=== PATIENT | male | born 1940 | race Caucasian/White ===

== ENCOUNTER → 2019-03-08 | Outpatient (CLI) | payer MEDICARE ==
[2019-03-08 15:12] LABS: Potassium 4.3 mmol/L (3.5-5.1)
== END | disposition home or self-care (01) ==
LOC: LABPAT 14:21
PROVIDERS: ATTEND Internal Medicine Clinical Cardiac Electrophysiology
DX: Z01.812 Encounter for preprocedural laboratory examination (principal)
CPT/HCPCS: 36415; 80051; 82565; 82947; 83735; 84520

== ENCOUNTER → 2019-03-12 | Day surgery (SDC) | payer MEDICARE ==
[~2019-03-12] MED LIST: SODIUM CHLORIDE 0.9% 1,000 ML IV ONE; SODIUM CHLORIDE 0.9% 1,000 ML IV SCH
[2019-03-12 13:35] VITALS: RESP 18; TEMP 98
[2019-03-12 14:57] VITALS: BP 138/74; PULSE 58
--- NOTE | 2019-03-12 16:26 | P.PCN ---
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 The patient has a screw-in RV lead and a screw-in atrial lead in the right atrial appendage No lead discontinued T under the clavicle Left upper extremity venogram was performed 50 mL of dye was used. Left subclavian vein was patent Plan Close monitoring of ventricular thresholds and lead impedances If this continues to rise then implantation of a new lead, possibly a His bundle lead implantation should be considered
== END | disposition home or self-care (01) ==
LOC: CATHEP 13:02
PROVIDERS: ATTEND Internal Medicine Clinical Cardiac Electrophysiology
DX: I42.2 Other hypertrophic cardiomyopathy (principal); I45.5 Other specified heart block; Z82.49 Family history of ischemic heart disease and other diseases of the circulatory system; F17.200 Nicotine dependence, unspecified, uncomplicated; Z79.82 Long term (current) use of aspirin; Z79.51 Long term (current) use of inhaled steroids; Z79.899 Other long term (current) drug therapy; Z88.0 Allergy status to penicillin; Z88.6 Allergy status to analgesic agent; Z91.040 Latex allergy status; E78.2 Mixed hyperlipidemia
CPT/HCPCS: 36005; 75820; 76000

== ENCOUNTER 2022-04-28 22:53 | Emergency (ER) | payer MEDICARE ==
[2022-04-28 23:03] VITALS: BP 143/75; PULSE 59; RESP 20; TEMP 98
--- NOTE | 2022-04-29 00:17 | ED ---
General Adult HPI - General Chief complaint: Fall Stated complaint: Head Injury Time Seen by Provider: 04/28/22 23:08 Source: patient, RN notes reviewed Mode of arrival: ambulatory Limitations: no limitations - History of Present Illness Initial comments: 81-year-old male presents to the emergency department for evaluation of injury sustained in a trip and fall earlier today. Patient states he was out for his daily child at 11 AM when he caught his foot on a uneven area and fell onto a gravel driveway. Reports striking his head and landing on an outstretched arm. States he went to the emergency department in the local area where the injury occurred, however was encouraged to return to the last have a CAT scan of his brain as he is unable to listen has injuries to his head and face. Patient denies any loss of consciousness at the time of fall. States he has been able to tolerate oral intake without difficulty. States he is ambulating without issue since the fall. Denies fever, chills, blurry vision, pain with eye movement, headache, jaw pain, neck pain, back pain, chest pain, shortness of breath, difficulty breathing, abdominal pain, nausea, vomiting, diarrhea, or dysuria. - Related Data Home Medications Medication Instructions Recorded Confirmed Montelukast Sodium [Singulair] 10 mg PO HS 03/31/15 03/12/19 Pantoprazole Sodium [Protonix] 40 mg PO HS 03/31/15 03/12/19 Simvastatin [Zocor] 40 mg PO HS 03/31/15 03/12/19 lamoTRIgine [LaMICtal] 50 mg PO QA 03/31/15 03/12/19 Calcium Carbonate/Vitamin D3 1 each PO DAILY 08/11/15 03/08/19 [Calcium 600 + Vit D Tablet] Donepezil [Aricept] 10 mg PO HS 08/11/15 03/12/19 Multivitamins, Thera [Theragran] 1 each PO DAILY 08/11/15 03/08/19 Primidone [Mysoline] 50 mg PO QA 08/11/15 03/12/19 Aspirin [Adult Low Dose Aspirin EC] 81 mg PO DAILY 03/08/19 03/12/19 [place] Xl 1 tab PO DAILY 03/08/19 Super Beta Prostate 1 tab PO DAILY 03/08/19 Turmeric Root Extract [Turmeric] 1 tab PO DAILY 03/08/19 03/08/19 Vortioxetine Hydrobromide 20 mg PO QAM 03/08/19 03/12/19 [Trintellix] Allergies Allergy/AdvReac Type Severity Reaction Status Date / Time latex Allergy Rash/Hives Verified 04/28/22 23:03 Penicillins Allergy Unknown Verified 04/28/22 23:03 Childhood Review of Systems ROS Statement: Those systems with pertinent positive or pertinent negative responses have been documented in the HPI. ROS Other: All systems not noted in ROS Statement are negative. Past Medical History Past Medical History: Asthma, Cancer, Hyperlipidemia, Prostate Disorder, Renal Disease, Skin Disorder Additional Past Medical History / Comment(s): SEE CARDIOVASCULAR H & P BY DR. BARRERA. "Heart block". Skin cancer (SQUAMOUS, BASAL). "borderline" kidneys History of Any Multi-Drug Resistant Organisms: None Reported Past Surgical History: Heart Catheterization, Orthopedic Surgery, Pacemaker, Tonsillectomy Additional Past Surgical History / Comment(s): Lft ankle surger. Alberto cataracts Past Anesthesia/Blood Transfusion Reactions: No Reported Reaction Type of Cardiac Device: Permanent Pacemaker Device Placement Date:: unknown Past Psychological History: Anxiety, Depression Smoking Status: Never smoker Past Alcohol Use History: Daily Past Drug Use History: None Reported - Past Family History Mother Family Medical History: No Reported History General Exam Limitations: no limitations General appearance: alert, in no apparent distress (Well-developed, well- nourished male in no acute distress. Initial temperature 98.0, pulse 59, respirations 20, blood pressure 143/75, pulse ox 99% on room air.) Head exam: Present: normocephalic. Absent: atraumatic (Contusions and abrasions noted to the left temporal region. Spongy dressing applied per previous facility.) Eye exam: Present: normal appearance, PERRL, EOMI, periorbital swelling, periorbital tenderness (periorbital tenderness and swelling of the left eye; contusion developing. no pain with eye movement.). Absent: scleral icterus, conjunctival injection ENT exam: Present: normal exam, normal oropharynx, mucous membranes moist Neck exam: Present: normal inspection, full ROM. Absent: tenderness, meningismus, lymphadenopathy Respiratory exam: Present: normal lung sounds bilaterally. Absent: respiratory distress, wheezes, rales, rhonchi, stridor Cardiovascular Exam: Present: regular rate, irregular rhythm, normal heart sounds GI/Abdominal exam: Present: soft, normal bowel sounds. Absent: distended, tenderness, guarding, rebound, rigid Back exam: Present: normal inspection, full ROM. Absent: paraspinal tenderness, vertebral tenderness Neurological exam: Present: alert, oriented X3, CN II-XII intact, normal gait Expanded Patient oriented to: Present: person, place, time Speech: Present: fluid speech Cranial nerves: EOM's Intact: Normal, Nystagmus: Normal Cerebellar function: Romberg: Normal Motor strength exam: RUE: 5, LUE: 5, RLE: 5, LLE: 5 Eye Response: (4) open spontaneously Motor Response: (6) obeys commands Verbal Response: (5) oriented Claude Total: 15 Psychiatric exam: Present: normal affect, normal mood Course Vital Signs 04/28/22 22:57 Temperature 98.0 F Pulse Rate 59 L Respiratory 20 Rate Blood Pressure 143/75 O2 Sat by Pulse 99 Oximetry Medical Decision Making - Medical Decision Making This is an 81-year-old male with a past medical history of CAD, pacemaker, and atrial fibrillation who presents to the emergency department via private vehicle for evaluation of head and facial injury status post trip and fall approximately 12-15 hours prior to arrival. Upon exam, patient is well-appear ing and in no acute distress. He answers questions appropriately. No focal neurological deficits. He has noticeable abrasions and contusions to the scalp, face, and left lateral perorbital region. CT of the brain and facial bones was obtained with no acute concerning findings. Wounds were cleansed and dressed of previous facility. Reiterated wound care instructions with the patient and spouse. Patient will be discharged home to follow up with his PCP for a recheck as needed. Return parameters were discussed in detail. Patient verbalizes understanding and agrees with this plan. Attending: Ck. - Radiology Data Radiology results: report reviewed, image reviewed CT of the brain was obtained. Report was reviewed in its entirety. Impression per Dr. Bartholomew is atrophy. No acute intracranial abnormality. There is mild progression of atrophy compared to the old exam. CT of facial bones was obtained. Report was reviewed in its entirety. Impression per Dr. Bartholomew is no fracture seen. Left-sided soft tissue deformity consistent with laceration as above. Disposition Clinical Impression: Contusion of face, Fall Disposition: HOME SELF-CARE Condition: Stable Instructions (If sedation given, give patient instructions): Fall Prevention for Older Adults (ED), Facial Contusion (ED) Additional Instructions: Apply bacitracin to abrasions. May apply ice if sore. I expect that you will be sore tomorrow. Follow-up with your PCP for a recheck on Monday. Return to the emergency department with any new, worsening, or concerning symptoms. Is patient prescribed a controlled substance at d/c from ED?: No Referrals: Rashad Daugherty MD [Primary Care Provider] - 1-2 days Time of Disposition: 01:12
--- NOTE | 2022-04-29 00:22 | CT ---
EXAMINATION TYPE: CT brain wo con DATE OF EXAM: 04/29/2022 COMPARISON: 03/31/2015 HISTORY: fall CT DLP: 1253.4 mGycm Automated exposure control for dose reduction was used. There is cerebral cortical atrophy. There is no mass effect or midline shift. No sign of intracranial hemorrhage. Calvarium is intact. There is normal aeration of the mastoid sinuses. Skull base is inta ct. IMPRESSION: Cerebral atrophy. No acute intracranial abnormality. There is mild progression of atrophy compared to the old exam.
--- NOTE | 2022-04-29 00:32 | CT ---
EXAMINATION TYPE: CT facial bones wo con DATE OF EXAM: 04/29/2022 COMPARISON: None HISTORY: Fall CT DLP: 1253.4 mGycm Automated exposure control for dose reduction was used. Images obtained from the bottom of the mandible to the frontal sinuses with no contrast. The mandibular ring is intact. Temporomandibular joints are intact. Zygomatic arches appear normal. N rodrigo bone is intact. The maxilla is intact. There is normal aeration of the left maxillary sinus. The re is bilateral patency of the ostiomeatal complex. No evidence of orbital blowout fracture. No retro -orbital mass. There is some soft tissue swelling inferior to the left orbit. There is normal aeratio n of the mastoid sinuses. Temporal bones appear intact. There is soft tissue deformity over the left side zygomatic arch consistent with laceration. There is some left lateral periorbital soft tissue sw elling. IMPRESSION: No fracture seen. Left-sided soft tissue deformity consistent with laceration as above.
== END 2022-04-29 01:35 | disposition home or self-care (01) ==
LOC: EC 22:53
DX: T14.90XA Injury, unspecified, initial encounter (principal); Z91.040 Latex allergy status; Z88.0 Allergy status to penicillin; J45.909 Unspecified asthma, uncomplicated; E78.5 Hyperlipidemia, unspecified; S00.83XA Contusion of other part of head, initial encounter; W01.0XXA Fall on same level from slipping, tripping and stumbling without subsequent striking against object, initial encounter
CPT/HCPCS: 70450; 70486

== ENCOUNTER → 2022-06-09 | Outpatient (CLI) | payer MEDICARE ==
[2022-06-09 15:58] LABS: Basophils # (A) 0.04 X 10*3/uL (0.00-0.10); Basophils % (A) 0.7 %; Eosinophils # (A) 0.47 X 10*3/uL (0.04-0.35); Eosinophils % (A) 7.7 %; HCT 36.4 % (39.6-50.0); HGB 11.6 g/dL (13.0-17.0); Immature Grans, Automated 0.3 %; Lymphocytes # (A) 1.43 X 10*3/uL (0.90-5.00); Lymphocytes % (A) 23.6 %; MCH 27.9 pg (27.0-32.0); MCHC 31.9 g/dL (32.0-37.0); MCV 87.5 fL (80.0-97.0); Mean Platelet Volume 11.2 fL (9.5-12.2); Monocytes # (A) 0.53 X 10*3/uL (0.20-1.00); Monocytes % (A) 8.7 %; NRBC Per 100 WBC 0 /100 WBCS (0.0-0.0); Neutrophils # (A) 3.58 X 10*3/uL (1.80-7.70); Platelet Count 157 X 10*3/uL (140-440); RBC 4.16 X 10*6/uL (4.40-5.60); RDW 14.9 % (11.5-14.5); WBC 6.07 X 10*3/uL (4.50-10.00)
[2022-06-09 16:20] LABS: Erythrocyte Sedimentation Rate 20 mm/Hr (0-20)
[2022-06-09 16:49] LABS: African American GFR (CKD) 37.2 (60.0-200.0); Albumin 4.1 g/dL (3.8-4.9); Albumin/Globulin Ratio 1.41 (1.60-3.17); BUN/Creat Ratio 18.68 Ratio (12.00-20.00); Blood Urea Nitrogen 35.5 mg/dL (9.0-27.0); Calcium 9.2 mg/dL (8.7-10.3); Globulin 2.9 g/dL (1.6-3.3); HDL Cholesterol 49.5 mg/dL (40.00-60.00); Non-African American GFR(CKD) 32.1 (60.0-200.0); PSA Annual Screen 0.7 ng/mL (0.000-4.000); Potassium 4.4 mmol/L (3.5-5.5); T4, Free (Free Thyroxine) 0.95 ng/dL (0.800-1.800); Total Bilirubin 0.4 mg/dL (0.30-1.20); Triglycerides 48.5 mg/dL (0.00-149.00)
[2022-06-09 17:04] LABS: Chol/HDL Ratio 2.36 Ratio; LDL Cholesterol,Direct Reflex 61.1 mg/dL (0.00-129.00)
== END | disposition home or self-care (01) ==
LOC: LABWHC1 08:41
PROVIDERS: ATTEND Internal Medicine
DX: E78.1 Pure hyperglyceridemia (principal); I10 Essential (primary) hypertension; N40.0 Benign prostatic hyperplasia without lower urinary tract symptoms; K21.9 Gastro-esophageal reflux disease without esophagitis; E78.00 Pure hypercholesterolemia, unspecified; F34.1 Dysthymic disorder; J45.20 Mild intermittent asthma, uncomplicated; N18.9 Chronic kidney disease, unspecified; N52.9 Male erectile dysfunction, unspecified
CPT/HCPCS: 84439; 80061; 80053; 85652; 84443; 85025; 83721; 36415; G0103

== ENCOUNTER → 2022-07-04 | Outpatient (CLI) | payer MEDICARE ==
[2022-07-04 17:43] LABS: Basophils # (A) 0.05 X 10*3/uL (0.00-0.10); Basophils % (A) 0.7 %; Eosinophils # (A) 0.28 X 10*3/uL (0.04-0.35); Eosinophils % (A) 3.7 %; HCT 36.9 % (39.6-50.0); HGB 11.4 g/dL (13.0-17.0); Immature Grans, Automated 0.4 %; Lymphocytes # (A) 1.71 X 10*3/uL (0.90-5.00); Lymphocytes % (A) 22.8 %; MCH 27.5 pg (27.0-32.0); MCHC 30.9 g/dL (32.0-37.0); MCV 88.9 fL (80.0-97.0); Mean Platelet Volume 10.6 fL (9.5-12.2); Monocytes # (A) 0.73 X 10*3/uL (0.20-1.00); Monocytes % (A) 9.7 %; NRBC Per 100 WBC 0 /100 WBCS (0.0-0.0); Neutrophils # (A) 4.71 X 10*3/uL (1.80-7.70); Neutrophils % (A) 62.7 %; Platelet Count 173 X 10*3/uL (140-440); RBC 4.15 X 10*6/uL (4.40-5.60); RDW 14.9 % (11.5-14.5); WBC 7.51 X 10*3/uL (4.50-10.00)
[2022-07-04 17:51] LABS: African American GFR (CKD) 38.4 (60.0-200.0); Anion Gap 8.8 mmol/L (10.00-18.00); BUN/Creat Ratio 22.86 Ratio (12.00-20.00); Blood Urea Nitrogen 42.3 mg/dL (9.0-27.0); Calcium 9.3 mg/dL (8.7-10.3); Carbon Dioxide 27.1 mmol/L (20.0-27.5); Non-African American GFR(CKD) 33.2 (60.0-200.0); Potassium 4.9 mmol/L (3.5-5.5)
== END | disposition home or self-care (01) ==
LOC: LABPAT 13:37
PROVIDERS: ATTEND Urology
DX: Z01.812 Encounter for preprocedural laboratory examination (principal); N40.1 Benign prostatic hyperplasia with lower urinary tract symptoms
CPT/HCPCS: 80048; 85025

== ENCOUNTER 2022-07-14 13:17 | Day surgery (SDC) | payer MEDICARE ==
[2022-07-13 09:06] VITALS: BMI 27.6
[~2022-07-14 13:17] MED LIST changes: +DEXAMETHASONE SOD PHOSPHATE 4 MG/ML 1 ML VIAL IV ONE; +HYDROmorphone 0.5 MG/0.5 ML SYRINGE IVP PRN; +LEVOFLOXACIN 500MG-D5W PMX 500 MG in DEXTROSE/WATER 1 100ML.BAG IVPB PRN; +LIDOCAINE 1% (10MG/ML) FOR IV START INTRADERMA PRN; +MIDAZOLAM 2 MG/2 ML VIAL IV PRN; +ONDANSETRON 4 MG/2 ML VIAL IVP ONE; -SODIUM CHLORIDE 0.9% 1,000 ML IV ONE; -SODIUM CHLORIDE 0.9% 1,000 ML IV SCH
--- NOTE | 2022-07-14 13:39 | P.GSHP ---
History of Present Illness H&P Date: 07/14/22 Chief Complaint: Urinary frequency, weak urinary stream Patient is an 81-year-old white male with BPH. His voiding symptoms of gradually worsened, and he now empties his bladder incompletely. Urinary flow studies have shown a weak urinary stream with incomplete bladder emptying, and cystoscopy shows bilobar BPH. He has been offered the options of a TURP versus a minimally invasive procedure such as Urolift. He has chosen to undergo the latter. - Genitourinary (Male) Genitourinary: Reports as per HPI Past Medical History Past Medical History: Asthma, Cancer, GERD/Reflux, Hyperlipidemia, Musculoskeletal Disorder, Prostate Disorder, Renal Disease Additional Past Medical History / Comment(s): "Heart block". Skin cancer (SQUAMOUS, BASAL). "Borderline kidneys". DDD. History of Any Multi-Drug Resistant Organisms: None Reported Past Surgical History: Heart Catheterization, Orthopedic Surgery, Pacemaker, Tonsillectomy Additional Past Surgical History / Comment(s): Left ankle surgery. Bilateral cataracts removed. Past Anesthesia/Blood Transfusion Reactions: No Reported Reaction Type of Cardiac Device: Permanent Pacemaker Device Placement Date:: at least 10 yrs ago Past Psychological History: Anxiety, Depression Smoking Status: Former smoker Past Alcohol Use History: Daily Additional Past Alcohol Use History / Comment(s): QUIT SMOKING IN 1964. 1 DRINK AT [employer]. Past Drug Use History: None Reported - Past Family History Mother Family Medical History: No Reported History Medications and Allergies Home Medications Medication Instructions Recorded Confirmed Type Montelukast Sodium [Singulair] 10 mg PO HS 03/31/15 07/13/22 History Pantoprazole Sodium [Protonix] 40 mg PO 03/31/15 07/13/22 History Calcium Carbonate/Vitamin D3 1 each PO DAILY 08/11/15 07/13/22 History [Calcium 600 + Vit D Tablet] Multivitamins, Thera [Theragran] 1 each PO DAILY 08/11/15 07/13/22 History Primidone [Mysoline] 50 mg PO QAM 08/11/15 07/13/22 History [place] Xl 1 tab PO DAILY 03/08/19 07/13/22 History Super Beta Prostate 1 tab PO DAILY 03/08/19 07/13/22 History allopurinoL [Zyloprim] 100 mg PO DAILY 07/13/22 07/13/22 History Allergies Allergy/AdvReac Type Severity Reaction Status Date / Time latex Allergy Rash/Hives Verified 07/13/22 09:13 Penicillins Allergy Unknown Verified 07/13/22 09:13 Childhood Surgical - Exam - General well developed, well nourished, no distress - Respiratory normal respiratory effort - Abdomen Abdomen: soft, non tender, no guarding, no rigid, no rebound - Genitourinary normal penis with no external lesions, testicles non-tender - Rectum Rectum: normal sphincter tone, no masses, other (Prostate mildly enlarged but smooth) - Psychiatric oriented to time, oriented to person, oriented to place, speech is normal, memory intact Assessment and Plan (1) Benign prostatic hyperplasia with lower urinary tract symptoms Status: Acute Code(s): N40.1 - BENIGN PROSTATIC HYPERPLASIA WITH LOWER URINARY TRACT SYMP SNOMED Code(s): 454625868 Plan: Cystoscopy with Urolift implants. The procedure then reviewed in detail with the patient. He has been made aware of potential risks, which include anesthesia, bleeding, infection, postoperative urinary retention, postoperative irritative voiding symptoms, and persistent incomplete bladder emptying.
[2022-07-14] MEDS: LACTATED RINGERS 1,000 ML IV SCH ×2 (13:52→17:00)
[2022-07-14] MEDS ORDERED: PHENYLEPHRINE-0.9% NACL SYG 1,000 MCG/10 ML SYRINGE ONE (14:28)
[2022-07-14] MEDS ORDERED: PROPOFOL 10 MG/ML 20 ML VIAL IV ONE (14:28)
[2022-07-14] MEDS ORDERED: GLYCOPYRROLATE 0.2 MG/ML 2 ML VIAL ONE (14:28)
[2022-07-14] MEDS ORDERED: NEOSTIGMINE 1 MG/ML 10 ML VIAL ONE (14:28)
[2022-07-14] MEDS ORDERED: fentaNYL (PF) 50 MCG/ML 2 ML AMP ONE (14:28)
[2022-07-14] MEDS ORDERED: MIDAZOLAM 2 MG/2 ML VIAL ONE (14:28)
[2022-07-14] MEDS ORDERED: ROCURONIUM 10 MG/ML (5 ML VIAL) IV ONE (14:28)
[2022-07-14 16:44] VITALS: RESP 16; TEMP 97.1
--- NOTE | 2022-07-14 17:15 | P.OP ---
Date of Procedure: 07/14/22 Preoperative Diagnosis: BPH with obstruction Postoperative Diagnosis: BPH with obstruction, bladder tumor Procedure(s) Performed: Cystoscopy, transurethral resection of bladder tumor (Large) Anesthesia: ALFREDA Surgeon: Doug Hercules Estimated Blood Loss (ml): 30 IV fluids (ml): 800 Pathology: other (Tumor fragments from right lateral bladder wall and prostatic urethra) Condition: stable Disposition: PACU Indications for Procedure: Patient is an 81-year-old white male with BPH. His voiding symptoms of gradually worsened, and he now empties his bladder incompletely. Urinary flow studies have shown a weak urinary stream with incomplete bladder emptying, and cystoscopy shows bilobar BPH. He has been offered the options of a TURP versus a minimally invasive procedure such as Urolift. He has chosen to undergo the latter. 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 Description of Procedure: The patient was taken in the operating room and placed in the dorsal lithotomy position, with his legs supported in Kishore stirrups. The external genitalia was prepped and draped sterilely. The 30 lens was used to introduce the cystoscope through the urethra and into the bladder under direct vision. The anterior urethra appeared normal. The prostatic urethra was visually occluded, with a trilobar configuration and a high median bar. The bladder was inspected. Both ureteral orifices were of normal anatomic location and configuration, and clear urine effluxed from both. The entire bladder was examined, revealing multiple flat tumors covering the majority of the right lateral bladder wall. No tumors were seen elsewhere in the bladder, or within the prostatic urethra. The planned Urolift procedure was aborted, and the decision was made to perform TUR- BT. The [place] urethrotome was used to incise the urethra to 25-Nigerien. The 25-Nigerien ACMI resectoscope sheath was introduced into the bladder. Using the cutting loop, the tumors were resected down to the muscle. All visible tumor was resected, involving an area exceeding 10 cm. Excellent hemostasis was attained. There was no evidence of bladder perforation. The resected tissue was saved and sent for pathologic examination. The resectoscope was then used to perform a biopsy of the prostatic urethra, resecting through the vesical neck and up to the verumontanum in the midline. This was sent as a separate specimen. After fulgurating the resection bed, an 18-N[place]ien Can catheter was inserted. The return was essentially clear. The patient tolerated the procedure well and was taken to the recovery room in stable condition.
[2022-07-14 18:11] VITALS: BP 152/85; PULSE 59
== END 2022-07-14 18:50 | disposition home or self-care (01) ==
LOC: OR 13:17
PROVIDERS: ATTEND Urology
DX: D09.0 Carcinoma in situ of bladder (principal); N40.1 Benign prostatic hyperplasia with lower urinary tract symptoms; N13.8 Other obstructive and reflux uropathy; J45.909 Unspecified asthma, uncomplicated; K21.9 Gastro-esophageal reflux disease without esophagitis; E78.5 Hyperlipidemia, unspecified; Z87.39 Personal history of other diseases of the musculoskeletal system and connective tissue; Z95.0 Presence of cardiac pacemaker; Z87.891 Personal history of nicotine dependence; Z86.59 Personal history of other mental and behavioral disorders; Z79.899 Other long term (current) drug therapy; Z88.0 Allergy status to penicillin
CPT/HCPCS: 88305; 88307; 52240; J2250; J1100; J2710; J2405; J1956; J3010; J2370; J2704

== ENCOUNTER → 2023-05-12 | Outpatient (CLI) | payer MEDICARE ==
[2023-05-12 16:45] LABS: ALT 24 U/L (10-49); AST 35 U/L (14-35); Albumin 4.4 d/dL (3.8-4.9); Albumin/Globulin Ratio 1.57 Ratio (1.60-3.17); Alkaline Phosphatase 72 U/L (41-126); BUN/Creat Ratio 13.71 Ratio (12.00-20.00); Blood Urea Nitrogen 28.8 mg/dL (9.0-27.0); Calcium 9.5 mg/dL (8.7-10.3); Carbon Dioxide 22.2 mmol/L (21.6-31.8); Chloride 103 mmol/L (96-109); Chol/HDL Ratio 2.67 Ratio; Globulin 2.8 d/dL (1.6-3.3); Glucose 98 mg/dL (70-110); LDL Cholesterol,Calculated 66.3 mg/dL (0.0-131.0); Potassium 4.3 mmol/L (3.5-5.5); Sodium 137 mmol/L (135-145); T4, Free (Free Thyroxine) 0.94 ng/dL (0.80-1.80); Total Bilirubin 0.4 mg/dL (0.3-1.2); Total Protein 7.2 d/dL (6.2-8.2); VLDL Calculation 17.52 mg/dL (5.00-40.00)
[2023-05-12 23:41] LABS: HCT 38.1 % (39.6-50.0); MCH 27.4 pg (27.0-32.0); MCHC 31.5 d/dL (32.0-37.0); Mean Platelet Volume 11.1 FL (9.5-12.2); NRBC Per 100 WBC 0 X 10*3/uL (0.00-0.01); Platelet Count 202 X 10*3/uL (140-440); RBC 4.38 X 10*6/uL (4.40-5.60); RDW 16.1 % (11.5-14.5); WBC 5.54 X 10*3/uL (4.50-10.00)
[2023-05-12 23:42] LABS: Basophils # (A) 0.04 X 10*3/uL (0.00-0.10); Basophils % (A) 0.7 %; Eosinophils # (A) 0.18 X 10*3/uL (0.04-0.35); Eosinophils % (A) 3.2 %; Lymphocytes # (A) 1.44 X 10*3/uL (0.90-5.00); Monocytes # (A) 0.63 X 10*3/uL (0.20-1.00); Monocytes % (A) 11.4 %; Neutrophils # (A) 3.24 X 10*3/uL (1.80-7.70); Neutrophils % (A) 58.5 %
== END | disposition home or self-care (01) ==
LOC: LABWHC1 09:12
PROVIDERS: ATTEND Internal Medicine
DX: I10 Essential (primary) hypertension (principal); E78.5 Hyperlipidemia, unspecified
CPT/HCPCS: 36415; 80053; 80061; 84439; 84443; 85025

== ENCOUNTER 2023-06-13 06:27 | Day surgery (SDC) | payer MEDICARE ==
[~2023-06-13 06:27] MED LIST changes: -DEXAMETHASONE SOD PHOSPHATE 4 MG/ML 1 ML VIAL IV ONE; -HYDROmorphone 0.5 MG/0.5 ML SYRINGE IVP PRN; -LEVOFLOXACIN 500MG-D5W PMX 500 MG in DEXTROSE/WATER 1 100ML.BAG IVPB PRN; -LIDOCAINE 1% (10MG/ML) FOR IV START INTRADERMA PRN; -MIDAZOLAM 2 MG/2 ML VIAL IV PRN; -ONDANSETRON 4 MG/2 ML VIAL IVP ONE; +SODIUM CHLORIDE 0.9% 1,000 ML IV SCH
[2023-06-13] MEDS ORDERED: SODIUM CHLORIDE 0.9% 500 ML 500 ML IV ONE (07:02)
[2023-06-13 07:08] VITALS: BP 140/74; PULSE 60; RESP 16; TEMP 97.7
[2023-06-13] MEDS ORDERED: IOPAMIDOL-370 100ML BTL IVP ONE (07:12)
[2023-06-13 07:27] LABS: African American GFR (CKD) 46 (>60 ml/min/1.73 sqM); Anion Gap 6 mmol/L; Blood Urea Nitrogen 35 mg/dL (9-20); Calcium 8.9 mg/dL (8.4-10.2); Carbon Dioxide 28 mmol/L (22-30); Chloride 106 mmol/L (98-107); Glucose 100 mg/dL (74-99); Non-African American GFR(CKD) 40 (>60 ml/min/1.73 sqM); Potassium 4.6 mmol/L (3.5-5.1); Sodium 140 mmol/L (137-145)
--- NOTE | 2023-06-13 11:18 | P.EPPROC ---
- EP Procedure Note Electrophysiology Procedure Note: Diagnosis Device at [facility], normal battery depletion Increased RV thresholds, chronic Nonobstructive hypertrophic cardio myopathy Left upper extremity venogram reveals a patent left subclavian vein with very mild stenosis 15 mL IV dye injected in the left arm Plan Proceed with the generator change and implantation of a new RV lead in the septum. Conduction system pacing and dual-chamber pacing since the old RV lead has chronically elevated thresholds and the patient is 100% RV paced Discussed with the patient Will schedule for next week
== END 2023-06-13 08:06 | disposition home or self-care (01) ==
LOC: CATHEP 06:27
PROVIDERS: ATTEND Internal Medicine Clinical Cardiac Electrophysiology
DX: I48.11 Longstanding persistent atrial fibrillation (principal); E78.2 Mixed hyperlipidemia; I42.1 Obstructive hypertrophic cardiomyopathy; F17.210 Nicotine dependence, cigarettes, uncomplicated; Z82.49 Family history of ischemic heart disease and other diseases of the circulatory system; Z79.01 Long term (current) use of anticoagulants; Z88.0 Allergy status to penicillin; Z91.040 Latex allergy status; Z95.0 Presence of cardiac pacemaker; Z79.899 Other long term (current) drug therapy
CPT/HCPCS: 36005; 75820; 80048; Q9967

== ENCOUNTER → 2023-06-19 | Day surgery (SDC) | payer MEDICARE ==
[2023-06-16 12:13] VITALS: BMI 29.2
[~2023-06-19] MED LIST changes: +ACETAMINOPHEN IV (For NPO) 1,000 MG in EMPTY BAG 1 BAG IVPB ONE; +ACETAMINOPHEN TAB 325 MG TAB PO PRN; +CLINDAMYCIN 600 MG in SODIUM CHLORIDE 0.9% 250 ML IRRIGATION PRN; +CLINDAMYCIN 900 MG in DEXTROSE 5% IN WATER 50 ML IVPB PRN; +CLINDAMYCIN 900 MG in DEXTROSE 5% IN WATER 50 ML IVPB SCH; +LACTATED RINGERS 1,000 ML IV SCH; +LIDOCAINE 1% (10MG/ML) FOR IV START INTRADERMA PRN; +LIDOCAINE 1% INJ 10MG/ML (20 ML MDV) ONE; +LIDOCAINE 1% INJ 10MG/ML (20 ML MDV) SQ ONE; +MIDAZOLAM 2 MG/2 ML VIAL ONE; +ONDANSETRON 4 MG/2 ML VIAL IVP PRN; +VANCOMYCIN 1,250 MG in SODIUM CHLORIDE 0.9% 250 ML IVPB PRN; +VANCOMYCIN IV PER PHARMACY 1 EACH MISC MISCELLANE PRN; +diphenhydrAMINE 50 MG/ML 1 ML VIAL ONE; +fentaNYL (PF) 50 MCG/ML 2 ML AMP IV PRN; +fentaNYL (PF) 50 MCG/ML 2 ML AMP ONE
[2023-06-19 10:15] VITALS: PULSE 60; RESP 16; TEMP 97.4
--- NOTE | 2023-06-19 14:15 | P.EPPROC ---
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 Written informed consent was obtained prior to the procedure. Conscious sedation provided by [employer]. IV antibiotics administered. Local anesthesia administered. A 4 cm incision made in the pectoral area. Subfascial pocket made. Venous accesses obtained Venous sheaths placed. Leads placed in the right heart. 2 sets of pacing cables were used; one for backup temporary pacing and the other for assessment of current of injury and signal analysis. A deflected sheath was prepped. A coronary sinus decapolar catheter was placed within this sheath. The catheter along with the sheath was then passed into the right heart, the catheter was prolapsed across the tricuspid valve, into the right ventricle and then further into the right ventricular outflow tract across the pulmonic valve into the pulmonary artery. This sheath was slid over this decapolar catheter into the RVOT. Thereafter the catheter last sheath assembly was withdrawn from the RVOT along the septum to the mid septal area. The sheath was appropriately to to map the right ventricular aspect of the septum. The decapolar catheter was withdrawn, the sheath flushed again and the screw-in pacing lead placed within the sheath. Further detailed unipolar pace-mapping of the septum was performed and once the appropriate based morphology was obtained on lead V1, the lead was screwed into the septum. The lead was screwed in 4-5 returns at a time while monitoring the current of injury, the pacing impedance changes and the paced QRS morphology. The stimulus to peak of V6 QRS was measured at each step. Once a QR or rSR pattern of paced QRS in lead V1 was obtained, a left bundle signal was sought. Impedance was measured and thresholds were measured. An impedance drop of 100-200 ohms but above 550 ohms was targeted along with an unchanged vector of the current of injury signal. The final positioning was based on the QRS morphology in lead V1 and a short stimulus to peak of the V6 QRS of less than 90 ms. The sheath was withdrawn, stability of the pacing lead deep in the septum was confirmed on LOMBARDO and AMHARIC views and the sheath was slipped and an adequate heel was provided for the lead. Unipolar and bipolar electrogram morphology obtained Left bundle lead parameters unipolar pacing threshold 0.4 V at 0.4 ms No R waves noted Pacing impedance 760 ohms Bipolar pacing impedance 893 ohms Atrial lead parameters sensing 0.6 mV, in atrial fibrillation, pacing impedance 380 ohms Device veneer splicer Dual-chamber pacemaker device connected to the leads and placed in the subfascial pocket Patient tolerated the procedure well without acute complications Pacemaker programming: DDDR 60-130ppm with mode switch
[2023-06-19 15:40] VITALS: BP 111/58
--- NOTE | 2023-06-19 22:43 | XR ---
EXAMINATION TYPE: XR chest 1V portable DATE OF EXAM: 06/19/2023 3:13 PM CLINICAL INDICATION:Male, 82 years old with history of Lead placement check; COMPARISON: Chest radiographs from 03/31/2015 TECHNIQUE: XR chest 1V portable Frontal view of the chest. FINDINGS: Lungs/Pleura: There is flattening of the diaphragm with increased lucency of the lungs. No evidence o f pneumothorax, pleural effusion or focal consolidation. Pulmonary vascularity: Unremarkable. Heart/mediastinum: Cardiomediastinal silhouette is enlarged and stable. Three lead cardiac conduction device overlying the left hemithorax with lead tips projecting over the right ventricle, right atriu m and coronary sinus. Musculoskeletal: No acute osseous pathology. IMPRESSION: 1. No acute cardiopulmonary disease/process. 2. Cardiac conduction leads appear in appropriate position. 3. COPD changes.
== END ==
LOC: CATHEP 08:47
PROVIDERS: ATTEND Internal Medicine Clinical Cardiac Electrophysiology
DX: Z45.010 Encounter for checking and testing of cardiac pacemaker pulse generator [battery] (principal); J44.9 Chronic obstructive pulmonary disease, unspecified; E78.5 Hyperlipidemia, unspecified; I48.91 Unspecified atrial fibrillation; Z88.0 Allergy status to penicillin; Z91.040 Latex allergy status; Z87.891 Personal history of nicotine dependence; Z85.51 Personal history of malignant neoplasm of bladder; Z79.01 Long term (current) use of anticoagulants; Z79.899 Other long term (current) drug therapy; Z79.51 Long term (current) use of inhaled steroids; Y83.8 Other surgical procedures as the cause of abnormal reaction of the patient, or of later complication, without mention of misadventure at the time of the procedure
CPT/HCPCS: 33207; 33233; 71045; C1730; C1892; C1898; C1769; C1785; J2250; J3370; J1200; J2001; J3010; J0736 ×2; 33216; 33228

== ENCOUNTER 2023-06-29 06:10 | Day surgery (SDC) | payer MEDICARE ==
[2023-06-22 15:06] VITALS: BMI 29.2
--- NOTE | 2023-06-27 07:00 | P.GSHP ---
History of Present Illness H&P Date: 06/27/23 Chief Complaint: Urinary frequency, weak urinary stream Patient is an 82-year-old white male with BPH. His voiding symptoms have gradually worsened, and he now empties his bladder incompletely. Urinary flow studies revealed a weak urinary stream with incomplete bladder emptying, and cystoscopy shows bilobar BPH. He has been offered the options of a TURP versus a minimally invasive procedure such as Urolift. He chose to undergo the latter, and this was to have been done in June 2022. However, cystoscopy at that time showed flat tumor on the right lateral bladder wall suspicious for carcinoma in situ. The tumor was resected, and the ureter left procedure was ab orted. 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 Bladder biopsies in March 2023 showed no evidence of malignancy. Given his persistent voiding symptoms, he has elected to undergo Urolift and comes for this reason. - Genitourinary (Male) Genitourinary: Reports urinary frequency Past Medical History Past Medical History: Atrial Fibrillation, Asthma, Cancer, Hyperlipidemia, Prostate Disorder, Renal Disease Additional Past Medical History / Comment(s): Bladder cancer/using BCG instillation, skin cancer (SQUAMOUS, BASAL). "borderline" kidneys History of Any Multi-Drug Resistant Organisms: None Reported Past Surgical History: Heart Catheterization, Orthopedic Surgery, Pacemaker, Tonsillectomy Additional Past Surgical History / Comment(s): Lft ankle surg. Alberto cataracts Past Anesthesia/Blood Transfusion Reactions: No Reported Reaction Type of Cardiac Device: Permanent Pacemaker Device Placement Date:: 2012 Past Psychological History: Anxiety, Depression Smoking Status: Former smoker Past Alcohol Use History: Daily Additional Past Alcohol Use History / Comment(s): QUIT SMOKING IN 1956. 1 DRINKS AT [employer]. Past Drug Use History: None Reported - Past Family History Mother Family Medical History: No Reported History Medications and Allergies Home Medications Medication Instructions Recorded Confirmed Type Montelukast Sodium [Singulair] 10 mg PO HS 03/31/15 06/22/23 History Primidone [Mysoline] 50 mg PO HS 08/11/15 06/22/23 History Beverly Xl 1 tab PO QAM 03/08/19 06/22/23 History Super Beta Prostate 1 tab PO BID 03/08/19 06/22/23 History allopurinoL [Zyloprim] 100 mg PO HS 07/13/22 06/22/23 History Apixaban [Eliquis] 2.5 mg PO BID 06/09/23 06/22/23 History Calcium Carbonate/Vitamin D3 1 tab PO QAM 06/09/23 06/22/23 History [Calcium 600 mg-D3 10 Mcg (400 Iu)] Famotidine 20 mg PO HS 06/09/23 06/22/23 History Magnesium 400 mg PO HS 06/09/23 06/22/23 History Multivitamins, Thera [Multivitamin 1 tab PO QAM 06/09/23 06/22/23 History (formulary)] Niacin 500 mg PO QAM 06/09/23 06/22/23 History OXcarbazepine 150 mg PO BID 06/09/23 06/22/23 History Simvastatin 40 mg PO HS 06/09/23 06/22/23 History lamoTRIgine [LaMICtal] 50 mg PO HS 06/09/23 06/22/23 History Allergies Allergy/AdvReac Type Severity Reaction Status Date / Time latex Allergy Rash/Hives Verified 06/22/23 14:35 Penicillins Allergy Unknown Verified 06/22/23 14:35 Childhood vancomycin AdvReac Itching Verified 06/22/23 14:35 Surgical - Exam - General well developed, well nourished, no distress - Respiratory normal respiratory effort - Abdomen Abdomen: soft, non tender, no guarding, no rigid, no rebound - Genitourinary normal penis with no external lesions, testicles non-tender - Psychiatric oriented to time, oriented to person, oriented to place, speech is normal, memory intact Assessment and Plan (1) Benign prostatic hyperplasia with lower urinary tract symptoms Status: Acute Code(s): N40.1 - BENIGN PROSTATIC HYPERPLASIA WITH LOWER URINARY TRACT SYMP SNOMED Code(s): 875962258 Plan: Cystoscopy with Urolift implants. The procedure then reviewed in detail with the patient. He has been made aware of potential risks, which include anesthesia, bleeding, infection, postoperative urinary retention, postoperative irritative voiding symptoms, and persistent incomplete bladder emptying.
[2023-06-29] MEDS ORDERED: ONDANSETRON 4 MG/2 ML VIAL IVP ONE (06:41)
[2023-06-29] MEDS ORDERED: LACTATED RINGERS 1,000 ML IV SCH (06:41)
[2023-06-29] MEDS ORDERED: LIDOCAINE 1% (10MG/ML) FOR IV START INTRADERMA PRN (06:41)
[2023-06-29] MEDS ORDERED: DEXAMETHASONE SOD PHOSPHATE 4 MG/ML 1 ML VIAL IV ONE ×2 (06:41)
[2023-06-29] MEDS ORDERED: HYDROmorphone 0.5 MG/0.5 ML SYRINGE IVP PRN (07:00)
[2023-06-29 07:04] VITALS: TEMP 96.9
[2023-06-29] MEDS ORDERED: FUROSEMIDE 10 MG/ML 2 ML VIAL ONE (07:31)
[2023-06-29] MEDS ORDERED: diphenhydrAMINE 50 MG/ML 1 ML VIAL ONE (07:31)
[2023-06-29] MEDS ORDERED: PROPOFOL 10 MG/ML 20 ML VIAL IV ONE (07:31)
[2023-06-29] MEDS ORDERED: LIDOCAINE 1% INJ 10MG/ML (20 ML MDV) ONE (07:31)
[2023-06-29] MEDS ORDERED: LABETALOL 5 MG/ML VIAL MDV ONE (07:31)
[2023-06-29] MEDS ORDERED: fentaNYL (PF) 50 MCG/ML 2 ML AMP ONE (07:31)
[2023-06-29] MEDS ORDERED: KETOROLAC 15 MG/ML 1 ML VIAL ONE (07:31)
[2023-06-29] MEDS ORDERED: ePHEDrine 50 MG/ML 1 ML VIAL ONE (07:31)
[2023-06-29] MEDS ORDERED: hydrALAZINE HCL 20 MG/ML 1 ML VIAL IVP ONE (09:36)
[2023-06-29 09:54] VITALS: RESP 18
[2023-06-29 11:31] VITALS: BP 120/78; PULSE 88
--- NOTE | 2023-07-02 07:54 | P.OP ---
Date of Procedure: 06/29/23 Preoperative Diagnosis: Urothelial carcinoma the bladder, BPH with obstruction Postoperative Diagnosis: Same Procedure(s) Performed: Cystoscopy with bladder biopsies, fulguration of bleeders, placement of Urolift implants Anesthesia: MATILDE Surgeon: Doug Hercules Estimated Blood Loss (ml): 30 IV fluids (ml): 600 Pathology: other (Bladder dome biopsy) Condition: stable Disposition: PACU Indications for Procedure: Patient is an 82-year-old white male with BPH. His voiding symptoms have gradually worsened, and he now empties his bladder incompletely. Urinary flow studies revealed a weak urinary stream with incomplete bladder emptying, and cystoscopy shows bilobar BPH. He has been offered the options of a TURP versus a minimally invasive procedure such as Urolift. He chose to undergo the latter, and this was to have been done in June 2022. However, cystoscopy at that time showed flat tumor on the right lateral bladder wall suspicious for carcinoma in situ. The tumor was resected, and the ureter left procedure was aborted. 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 Bladder biopsies in March 2023 showed no evidence of malignancy. Given his persistent voiding symptoms, he has elected to undergo Urolift and comes for this reason. Operative Findings: Patchy erythema with friable mucosa, involving primarily the right anterolateral bladder wall and left bladder dome. Obstructing prostate. Open anterior channel achieved by Urolift implants. Description of Procedure: The patient was taken in the operating room and placed in the dorsolithotomy position. The external genitalia was prepped and draped sterilely. The 30 lens was used to introduce the ACMI cystoscopic sheath through the urethra and into the bladder under direct vision. The anterior urethra appeared normal. The prostatic urethra showed evidence of partial obstruction with a bilobar configuration. Posteriorly, the fossa was open due to prior resection. However, the lateral lobes continued to obstruct anterolaterally. Upon entering the bladder, the bladder was noted to be distended. The bladder was drained and reexamined. The bladder mucosa was friable, and bleeding was noted predominantly at the left bladder dome and anterolaterally on the right. On the right side, the Bugbee electrode was used to fulgurate bleeders. An area of raised erythema was seen at the left bladder dome, and the cold cup biopsy forceps were used to obtain biopsies. This area was then fulgurated, attaining adequate hemostasis. No tumors or foreign bodies were seen. The ACMI cystoscopic sheath was removed, and the ZeniMax cystoscopic sheath was advanced through the urethra and into the bladder under direct vision. Urolift implants were placed at the 10:00 and 2:00 positions approximately 1.5 cm distal to the vesical neck. Based on the patient's anatomy, the implant on the right side did not grasp tissue and no portion of that implant was left behind. That implant was thus repeated. 2 additional Urolift implants were placed at the 9:00 and 3:00 positions at the level of the verumontanum. After performing 5 implants, including the one which did not take, obstruction was still noted on the left side. Therefore, a sixth implant was placed which resulted in an opened and unobstructed anterior channel. The cystoscope was removed, and an 18-Uk[place] Can catheter was placed. The return was pink-tinged. The patient tolerated the procedure well was taken to the recovery room in stable condition.
== END 2023-06-29 11:23 | disposition home or self-care (01) ==
LOC: OR 06:10
PROVIDERS: ATTEND Urology
DX: N30.10 Interstitial cystitis (chronic) without hematuria (principal); N40.1 Benign prostatic hyperplasia with lower urinary tract symptoms; E78.5 Hyperlipidemia, unspecified; I48.91 Unspecified atrial fibrillation; J45.909 Unspecified asthma, uncomplicated; F41.9 Anxiety disorder, unspecified; F32.A Depression, unspecified; N13.8 Other obstructive and reflux uropathy; Z79.01 Long term (current) use of anticoagulants; Z85.51 Personal history of malignant neoplasm of bladder; Z85.828 Personal history of other malignant neoplasm of skin; Z87.891 Personal history of nicotine dependence; Z88.0 Allergy status to penicillin; Z88.1 Allergy status to other antibiotic agents; Z91.040 Latex allergy status; Z95.0 Presence of cardiac pacemaker; Z79.899 Other long term (current) drug therapy
CPT/HCPCS: 88305; 52441; 52204; L8699; J0360; J1200; J1100; J1940; J0690; J2405; J2001; J3010; J1885; J2704; J1920

== ENCOUNTER → 2024-04-20 | Outpatient (CLI) | payer MEDICARE ==
[2024-04-21 07:38] LABS: Basophils # (A) 0.04 X 10*3/uL (0.00-0.10); Basophils % (A) 0.8 %; Eosinophils # (A) 0.11 X 10*3/uL (0.04-0.35); Eosinophils % (A) 2.1 %; HCT 36.1 % (39.6-50.0); HGB 11.8 g/dL (13.0-17.0); Lymphocytes % (A) 21.4 %; MCH 27.8 pg (27.0-32.0); MCHC 32.7 g/dL (32.0-37.0); MCV 85.1 FL (80.0-97.0); Mean Platelet Volume 11.2 FL (9.5-12.2); Monocytes # (A) 0.66 X 10*3/uL (0.20-1.00); Monocytes % (A) 12.9 %; NRBC Per 100 WBC 0 X 10*3/uL (0.00-0.01); Neutrophils # (A) 3.21 X 10*3/uL (1.80-7.70); Neutrophils % (A) 62.6 %; Platelet Count 150 X 10*3/uL (140-440); RBC 4.24 X 10*6/uL (4.40-5.60); RDW 14.6 % (11.5-14.5); WBC 5.13 X 10*3/uL (4.50-10.00)
[2024-04-21 10:40] LABS: ALT 19 U/L (10-49); AST 23 U/L (14-35); Albumin 4.4 g/dL (3.8-4.9); Albumin/Globulin Ratio 1.83 Ratio (1.60-3.17); Alkaline Phosphatase 70 U/L (41-126); BUN/Creat Ratio 16.62 Ratio (12.00-20.00); Blood Urea Nitrogen 26.6 mg/dL (9.0-27.0); Calcium 9.2 mg/dL (8.7-10.3); Carbon Dioxide 24.6 mmol/L (21.6-31.8); Chloride 94 mmol/L (96-109); Globulin 2.4 g/dL (1.6-3.3); Glucose 115 mg/dL (70-110); LDL Cholesterol,Calculated 55.4 mg/dL (0.0-131.0); Potassium 4.6 mmol/L (3.5-5.5); Sodium 132 mmol/L (135-145); T4, Free (Free Thyroxine) 1.07 ng/dL (0.80-1.80); Total Bilirubin 0.5 mg/dL (0.3-1.2); Total Protein 6.8 g/dL (6.2-8.2); VLDL Calculation 16.92 mg/dL (5.00-40.00)
== END | disposition home or self-care (01) ==
LOC: LABWHC1 10:10
PROVIDERS: ATTEND Internal Medicine
DX: I10 Essential (primary) hypertension (principal); E78.5 Hyperlipidemia, unspecified; D64.9 Anemia, unspecified; E55.9 Vitamin D deficiency, unspecified; R53.1 Weakness
CPT/HCPCS: 36415; 80053; 80061; 82306; 82607; 84439; 84443; 85025

== ENCOUNTER → 2025-02-28 | Outpatient (CLI) | payer MEDICARE ==
--- NOTE | 2025-02-28 15:15 | CT ---
EXAMINATION TYPE: CT abdomen pelvis wo con DATE OF EXAM: 02/28/2025 COMPARISON: NONE CLINICAL INDICATION: Male, 84 years old with history of C67.9 bladder ca, bladder CA, TECHNIQUE: CT scan of the abdomen and pelvis is performed , patient injected with mL of ., (none if empty) Oral contrast used: without Oral Contrast (none if empty) CT DLP: 882 mGycm, Automated exposure control for dose reduction was used. FINDINGS: LUNG BASES: Kptg-ki-pjozftdt peripheral reticulation and/or fibrotic changes present bilaterally. Mil d linear fibrosis in the bases. Prominent mitral calcification or surgical changes partially imaged. There is cardiomegaly with severe right atrial dilatation and dual-lead pacemaker partially imaged. LIVER/GB: No significant abnormality is appreciated. PANCREAS: No significant abnormality is seen. SPLEEN: No significant abnormality is seen. ADRENALS: No significant abnormality is seen. KIDNEYS: Some cortical volume loss bilaterally. Incidental 3.4 cm simple cyst in the right kidney lat erally that does not require follow-up. Rzym-fk-zldgxahs left greater than right hydronephrosis is se en. There is lobulated contour to the bladder with a few small anterior diverticulum. No intraluminal mass or calculus seen. Mild fat stranding of the wall could reflect posttreatment change. Surgical c lips inferiorly are seen. BOWEL: Redundant sigmoid colon and scattered colonic diverticula. No CT evidence for acute diverticul itis. Normal-appearing appendix from the cecum. No abnormal small or large bowel dilatation. PROSTATE/SEMINAL VESICLES: Suspect TURP type defect in the upper central prostate. Prostate gland not significantly enlarged. LYMPH NODES: No greater than 1cm abdominal or pelvic lymph nodes are appreciated. OSSEOUS STRUCTURES: Moderate to severe narrowing and spurring in both hip joints. Moderate to severe disc space narrowing at L4-L5 level. OTHER: Small fat-containing bilateral inguinal hernias. IMPRESSION: Suspected posttreatment change to the urinary bladder. No obvious suspicious mass or osmany opathy. Mild to moderate left greater than right hydronephrosis is noted. [facility], , 02/28/2025 3:13 PM
== END | disposition home or self-care (01) ==
LOC: RADCTMAIN 07:29
PROVIDERS: ATTEND Urology
DX: C67.9 Malignant neoplasm of bladder, unspecified (principal); N13.30 Unspecified hydronephrosis
CPT/HCPCS: 74176

== ENCOUNTER 2025-03-27 06:57 | Day surgery (SDC) | payer MEDICARE ==
[2025-03-26 13:17] VITALS: BMI 30.4
--- NOTE | 2025-03-26 22:30 | P.GSHP ---
History of Present Illness H&P Date: 03/26/25 Chief Complaint: Bladder cancer, hematuria Patient is an 84-year-old white male with BPH. His voiding symptoms have gradually worsened, and he elected to undergo UroLift implants in June 2022. However, cystoscopy at that time showed flat tumor on the right lateral bladder wall suspicious for carcinoma in situ. The tumor was resected, and the Urolift procedure was aborted. 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 Bladder biopsies in March 2023 showed no evidence of malignancy, and he ultimately underwent the UroLift implants in June 2023. Unfortunately, he continues to report significant voiding symptoms. He has recently experienced gross hematuria. Cystoscopy performed on January 20, 2025 showed no recurrences. Urine cytology showed atypical cells. CT scan performed on February 28, 2025 showed bilateral mild to moderate hydronephrosis, greater on the left side. He now comes for further evaluation. - Genitourinary (Male) Genitourinary: Reports as per HPI Past Medical History Past Medical History: Atrial Fibrillation, Asthma, Cancer, Hyperlipidemia, Prostate Disorder, Renal Disease Additional Past Medical History / Comment(s): recurrent bladder infections, Bladder cancer/using BCG instillation, skin cancer (SQUAMOUS, BASAL). "borderline" kidneys. History of Any Multi-Drug Resistant Organisms: None Reported Past Surgical History: Heart Catheterization, Orthopedic Surgery, Pacemaker, Tonsillectomy Additional Past Surgical History / Comment(s): Left ankle surgery. Bilateral cataract surgery. EP Study. Past Anesthesia/Blood Transfusion Reactions: No Reported Reaction Additional Past Anesthesia/Blood Transfusion Reaction / Comment(s): no hx blood transfusion Type of Cardiac Device: Permanent Pacemaker Device Placement Date:: 2012 left chest [employer] Smoking Status: Former smoker - Past Family History Mother Family Medical History: No Reported History Medications and Allergies Home Medications Medication Instructions Recorded Confirmed Type Montelukast Sodium [Singulair] 10 mg PO HS 03/31/15 03/26/25 History Forrest Xl 1 tab PO QAM 03/08/19 03/26/25 History allopurinoL [Zyloprim] 100 mg PO HS 07/13/22 03/26/25 History Apixaban [Eliquis] 2.5 mg PO BID 06/09/23 03/26/25 History Multivitamins, Thera [Multivitamin 1 tab PO QAM 06/09/23 03/26/25 History (formulary)] Niacin 500 mg PO QAM 06/09/23 03/26/25 History Simvastatin 40 mg PO HS 06/09/23 03/26/25 History lamoTRIgine [LaMICtal] 50 mg PO HS 06/09/23 03/26/25 History Albuterol Inhaler [Ventolin Hfa 1 - 2 puff INHALATION Q6H PRN 03/26/25 03/26/25 History Inhaler] Alfuzosin HCl [Alfuzosin HCl ER] 10 mg PO DAILY 03/26/25 03/26/25 History Cyanocobalamin (Vitamin B-12) 1,000 mcg PO DAILY 03/26/25 03/26/25 History [Vitamin B-12] Ferrous Sulfate [Iron] 325 mg PO DAILY 03/26/25 03/26/25 History Fluticasone/Umeclidin/Vilanter 1 puff INHALATION QAM 03/26/25 03/26/25 History [Trelegy Ellipta 200-62.5-25] Methenamine Hippurate 1 gm PO BID 03/26/25 03/26/25 History Solifenacin Succinate [Vesicare] 5 mg PO DAILY 03/26/25 03/26/25 History Thiamine HCl [Vitamin B-1] 100 mg PO DAILY 03/26/25 03/26/25 History Vit C/E/Zn/Coppr/Lutein/Zeaxan 1 each PO DAILY 03/26/25 03/26/25 History [Preservision Areds 2 Chew Tab] tadalafiL 5 mg PO HS 03/26/25 03/26/25 History Allergies Allergy/AdvReac Type Severity Reaction Status Date / Time latex Allergy Rash/Hives Verified 03/26/25 12:55 Penicillins Allergy Unknown Verified 03/26/25 12:55 Childhood vancomycin AdvReac Itching Verified 03/26/25 12:55 Surgical - Exam - General well developed, well nourished, no distress - Respiratory normal respiratory effort - Genitourinary normal penis with no external lesions, testicles non-tender - Psychiatric oriented to time, oriented to person, oriented to place, speech is normal, memory intact Assessment and Plan (1) Carcinoma in situ of bladder Status: Acute Code(s): D09.0 - CARCINOMA IN SITU OF BLADDER SNOMED Code(s): 67304370 (2) Unspecified hydronephrosis Status: Acute Code(s): N13.30 - UNSPECIFIED HYDRONEPHROSIS SNOMED Code(s): 23882486 Plan: Cystoscopy with possible bladder biopsies, bilateral retrograde pyelograms, possible ureteroscopy, possible ureteral stent insertion. The planned procedure has been reviewed in detail with the patient, including both the rationale for the procedure and potential risks which include anesthesia, bleeding, infection, ureteral injury, and bladder perforation.
[~2025-03-27 06:57] MED LIST changes: -ACETAMINOPHEN IV (For NPO) 1,000 MG in EMPTY BAG 1 BAG IVPB ONE; -ACETAMINOPHEN TAB 325 MG TAB PO PRN; -CLINDAMYCIN 600 MG in SODIUM CHLORIDE 0.9% 250 ML IRRIGATION PRN; -CLINDAMYCIN 900 MG in DEXTROSE 5% IN WATER 50 ML IVPB PRN; -CLINDAMYCIN 900 MG in DEXTROSE 5% IN WATER 50 ML IVPB SCH; +HYDROmorphone 0.5 MG/0.5 ML SYRINGE IVP PRN; -LACTATED RINGERS 1,000 ML IV SCH; -LIDOCAINE 1% INJ 10MG/ML (20 ML MDV) ONE; -LIDOCAINE 1% INJ 10MG/ML (20 ML MDV) SQ ONE; -MIDAZOLAM 2 MG/2 ML VIAL ONE; -ONDANSETRON 4 MG/2 ML VIAL IVP PRN; -SODIUM CHLORIDE 0.9% 1,000 ML IV SCH; -VANCOMYCIN 1,250 MG in SODIUM CHLORIDE 0.9% 250 ML IVPB PRN; -VANCOMYCIN IV PER PHARMACY 1 EACH MISC MISCELLANE PRN; -diphenhydrAMINE 50 MG/ML 1 ML VIAL ONE; -fentaNYL (PF) 50 MCG/ML 2 ML AMP IV PRN; -fentaNYL (PF) 50 MCG/ML 2 ML AMP ONE
[2025-03-27] MEDS: IV FLUID CONTINUATION 1,000 ML IV ONE (07:26)
[2025-03-27] MEDS: LACTATED RINGERS 1,000 ML IV SCH (07:52)
[2025-03-27] MEDS: ONDANSETRON 4 MG/2 ML VIAL IVP ONE (07:52)
[2025-03-27] MEDS: DEXAMETHASONE SOD PHOSPHATE 4 MG/ML 1 ML VIAL IV ONE (07:53)
[2025-03-27] MEDS ORDERED: PROPOFOL 10 MG/ML 20 ML VIAL IV ONE (08:30)
[2025-03-27] MEDS ORDERED: LIDOCAINE 1% INJ 10MG/ML (20 ML MDV) ONE (08:30)
[2025-03-27] MEDS ORDERED: SUCCINYLCHOLINE CHLORIDE 200 MG/10 ML VIAL IV ONE (08:30)
[2025-03-27] MEDS ORDERED: fentaNYL (PF) 50 MCG/ML 2 ML AMP ONE (08:30)
[2025-03-27] MEDS: IOPAMIDOL-370 100ML BTL MISCELLANE ONE ×2 (09:13)
[2025-03-27 10:05] VITALS: TEMP 97
--- NOTE | 2025-03-27 10:10 | FL ---
EXAMINATION TYPE: FL urography retrograde Intraoperative/procedural fluoroscopic services were provid ed. CLINICAL INDICATION:Male, 84 years old with history of Alberto Retrograde/stent insertion; , [facility] FINDINGS: Retrograde urography with left stent insertion. Left-sided hydroureteronephrosis demonstrated. No rad iographic evidence for complication. Total fluoroscopy time is 96.4 seconds. DAP: 1.43 mGym2 Please see the operative/procedural note for further details. [facility], , 03/27/2025 10:07 AM
--- NOTE | 2025-03-27 10:22 | P.OP ---
Date of Procedure: 03/27/25 Preoperative Diagnosis: Bladder CIS, bilateral hydronephrosis Postoperative Diagnosis: Same Procedure(s) Performed: Cystoscopy, left retrograde pyelogram, left ureteral stent insertion, fulguration of bleeders Anesthesia: ALFREDA Surgeon: Doug Hercules Estimated Blood Loss (ml): 30 IV fluids (ml): 500 Pathology: none sent Condition: stable Disposition: PACU Indications for Procedure: Patient is an 84-year-old white male with BPH. His voiding symptoms have gradually worsened, and he elected to undergo UroLift implants in June 2022. However, cystoscopy at that time showed flat tumor on the right lateral bladder wall suspicious for carcinoma in situ. The tumor was resected, and the Urolift procedure was aborted. 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 Bladder biopsies in March 2023 showed no evidence of malignancy, and he ultimately underwent the UroLift implants in June 2023. Unfortunately, he continues to report significant voiding symptoms. He has recently experienced gross hematuria. Cystoscopy performed on January 20, 2025 showed no recurrences. Urine cytology showed atypical cells. CT scan performed on February 28, 2025 showed bilateral mild to moderate hydronephrosis, greater on the left side. He now comes for further evaluation. Operative Findings: Open prostatic fossa. Right ureteral orifice not visualized. Left retrograde pyelogram confirms left hydroureteronephrosis. Left ureteral stent placed. Friable mucosa at bladder dome, fulgurated. No tumors seen. Description of Procedure: The patient was taken to the operating room and placed in the dorsolithotomy position, with legs supported in Kishore stirrups. The external genitalia was prepped and draped sterilely. The 30 lens was used to introduce the 22-Tu[place] Stortz cystoscopic sheath through the urethra and into the bladder under direct vision. The prostatic urethra was open due to prior UroLift implants, though it had the appearance of a prior TURP. No urothelial changes were seen within the prostatic urethra. The bladder was examined in its entirety. No tumors were seen. The mucosa at the bladder dome was friable, and appeared to split somewhat with bladder filling. No urothelial changes were seen suspicious for malignancy. The Bugbee electrode was used to fulgurate bleeders. Scarring of the bladder was noted, making visualization of the ureters difficult. Ultimately, the left ureteral orifice was identified. Using a 10 Tu[place] cone- tip catheter, a left retrograde pyelogram was performed. Contrast filled a dilated distal ureter, with no filling defects seen. With considerable difficulty, it was possible to cannulate the left ureteral orifice with an angled tip 0.035 inch Glidewire and advanced the Glidewire up to the left renal pelvis. As the Glidewire was advanced, it was evident that there was tortuosity of the ureter. Once the Glidewire was in place, a 6 Tu[place]uan open-ended catheter was advanced over the wire, up to the proximal ureter. Contrast was injected. Moderate to severe left hydroureteronephrosis was noted, with no filling defects seen. Due to the difficulty encountered in cannulating the left ureteral orifice and advancing the Glidewire, the decision was made to place a left ureteral stent. A 26 cm, 6-Tuvaluan double-J ureteral stent was placed over the wire. Proper stent positioning was verified fluoroscopically and endoscopically. Additional time was spent trying to identify the right ureteral orifice, but it could not be identified. The bladder was inspected, and any areas of bleeding were controlled with electrocautery. The cystoscope was removed, and an 18 Tu[place] Can catheter was placed. Hematuria was still present, without clots. Lasix 10 mg was given intravenously. The patient tolerated the procedure well and was taken to the recovery room in stable condition.
[2025-03-27 10:33] VITALS: RESP 18
[2025-03-27 11:03] VITALS: BP 137/81; PULSE 62
== END 2025-03-27 12:17 | disposition home or self-care (01) ==
LOC: OR 06:57
PROVIDERS: ATTEND Urology
DX: N13.30 Unspecified hydronephrosis (principal); D09.0 Carcinoma in situ of bladder; E78.5 Hyperlipidemia, unspecified; I48.91 Unspecified atrial fibrillation; J45.909 Unspecified asthma, uncomplicated; N40.0 Benign prostatic hyperplasia without lower urinary tract symptoms; Z79.01 Long term (current) use of anticoagulants; Z85.828 Personal history of other malignant neoplasm of skin; Z87.891 Personal history of nicotine dependence; Z88.0 Allergy status to penicillin; Z88.1 Allergy status to other antibiotic agents; Z91.040 Latex allergy status; Z95.0 Presence of cardiac pacemaker; Z85.51 Personal history of malignant neoplasm of bladder
CPT/HCPCS: 74420; 52332; 52354; C2625; C1758 ×3; C1769 ×2; J0330; J1100; J0690; J2405; J2003; J3010; J2704; Q9967